=== PATIENT | male | born 1980 | race American Indian/Alaskan Native ===

== ENCOUNTER 2019-04-29 03:20 | Inpatient (IN) | payer OTHER ==
[2019-04-29] MEDS ORDERED: Iopamidol 612 MG/ML 100 ML Bottle IVPUSH ONE (03:43)
[2019-04-29 03:57] LABS: ANION GAP 11.1; CHLORIDE,CL 101 mmol/L (101-111); SODIUM,NA 136 mmol/L (135-145)
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
[2019-04-29] MEDS ORDERED: Sodium Chloride 0.9% 1,000 ML IV ONE (04:19)
[2019-04-29] MEDS ORDERED: Iopamidol 612 MG/ML 75 ML Bottle IVPUSH ONE (04:39)
[2019-04-29] MEDS ORDERED: Iopamidol 612 MG/ML 50 ML SDV IVPUSH ONE (04:39)
[2019-04-29] MEDS ORDERED: hydrALAZINE 20 MG/ML SDV IVPUSH ONE (06:15)
[2019-04-29] MEDS ORDERED: Ibuprofen 800 MG Tab PO PRN (07:55)
[2019-04-29] MEDS ORDERED: Magnesium Hydroxide 400 MG/5 ML Susp 30 ML Cup PO PRN (07:55)
[2019-04-29] MEDS ORDERED: Docusate Sodium 100 MG Cap PO PRN (07:55)
[2019-04-29] MEDS ORDERED: Promethazine 25 MG Tab PO PRN (07:55)
[2019-04-29] MEDS ORDERED: Bisacodyl 5 MG Tab PO PRN (07:55)
[2019-04-29] MEDS ORDERED: Polyethylene Glycol 3350 Powder 17 GM Packet PO PRN (07:55)
[2019-04-29] MEDS ORDERED: Acetaminophen 325 MG Tab PO PRN (07:55)
[2019-04-29] MEDS ORDERED: Promethazine 25 MG/ML SDV IM PRN (07:55)
[2019-04-29] MEDS ORDERED: Ondansetron 4 MG Tab.DIS PO PRN (07:55)
[2019-04-29] MEDS ORDERED: Ondansetron 4 MG/2 ML SDV IVPUSH PRN (07:55)
[2019-04-29] MEDS ORDERED: Sodium Chloride 0.9% 1,000 ML IV SCH (08:00)
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
[2019-04-29] MEDS ORDERED: Cyclobenzaprine 10 MG Tab PO PRN (08:14)
[2019-04-29] MEDS ORDERED: cloNIDine 0.1 MG Tab PO PRN ×2 (08:15)
[2019-04-29] MEDS ORDERED: Loperamide 2 MG Cap PO PRN (08:20)
[2019-04-29] MEDS ORDERED: hydrOXYzine HCl 25 MG Tab PO PRN (08:20)
[2019-04-29] MEDS ORDERED: Enoxaparin 40 MG/0.4 ML Syringe SUBCUT SCH (09:00)
[2019-04-29] MEDS ORDERED: Naloxone 2 MG/2 ML Syringe IVPUSH PRN (10:08)
[2019-04-29 20:09] VITALS: BP 159/100
== END 2019-04-29 20:10 | disposition left against medical advice (07) | DRG 917 ==
LOC: DL.ED 03:20 → DL.MS 06:09
PROVIDERS: ADMIT Internal Medicine; ATTEND Internal Medicine
DX: T40.2X1A Poisoning by other opioids, accidental (unintentional), initial encounter (principal); R41.82 Altered mental status, unspecified; T40.2X5A Adverse effect of other opioids, initial encounter; T43.625A Adverse effect of amphetamines, initial encounter; R40.2422 Glasgow coma scale score 9-12, at arrival to emergency department; G92 Toxic encephalopathy; F11.129 Opioid abuse with intoxication, unspecified; F15.10 Other stimulant abuse, uncomplicated; R03.0 Elevated blood-pressure reading, without diagnosis of hypertension; V89.2XXA Person injured in unspecified motor-vehicle accident, traffic, initial encounter; R40.2423 Glasgow coma scale score 9-12, at hospital admission
CPT/HCPCS: 36415; 70450; 71260; 72125; 74177; 80053; 80305; 85025; 85610; 86850; 86900; 86901; 96361; 99291; 99292; G0480; J7030; Q9967 ×2; 82550; 96374; 99284; A9270-GY; J0360; J1650

== ENCOUNTER 2019-10-14 17:16 | Emergency (ER) | payer OTHER ==
[2019-10-14 17:28] VITALS: BP 154/82; PULSE 72
[2019-10-14] MEDS ORDERED: Sulfamethoxazole/Trimethoprim 800-160 MG Tab PO ONE (17:58)
[2019-10-14] MEDS ORDERED: Cephalexin 500 MG Cap PO ONE (17:59)
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
== END 2019-10-14 18:20 | disposition home or self-care (01) ==
LOC: DL.ED 17:16
DX: L08.9 Local infection of the skin and subcutaneous tissue, unspecified (principal); B95.8 Unspecified staphylococcus as the cause of diseases classified elsewhere; F17.210 Nicotine dependence, cigarettes, uncomplicated
CPT/HCPCS: 99283; A9270

== ENCOUNTER 2020-11-01 06:12 | Emergency (ER) | payer MEDICAID, OTHER ==
[2020-11-01 06:41] VITALS: BP 154/99; PULSE 89
[2020-11-01] MEDS ORDERED: Diphtheria,Pertussis(Acell),Tetanus Vaccine 0.5 ML Syringe IM ONE (07:00)
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
[2020-11-01] MEDS ORDERED: Lidocaine 1% with EPINEPHrine 1:100,000 20 ML MDV INJECT ONE (07:02)
== END 2020-11-01 08:17 | disposition home or self-care (01) ==
LOC: DL.ED 06:12
DX: S00.531A Contusion of lip, initial encounter (principal); I10 Essential (primary) hypertension; Z23 Encounter for immunization; Z72.0 Tobacco use; Y04.0XXA Assault by unarmed brawl or fight, initial encounter
CPT/HCPCS: 90471; 90715; 99283